=== PATIENT | male | born 1935 | race Caucasian/White ===

== ENCOUNTER 2016-05-11 13:00 | Emergency (ER) | payer MEDICARE ==
--- NOTE | ~2016-05-11 | CR151 ---
[facility] A Service of [facility] & [facility] RADIOLOGY TEXT RESULTS PATIENT: JUSTUS COTE LOCATION: [facility] : 35 UNIT #: [id number] AGE: [address]: Christen Loyola MD SEX: M ORDER DR: [id number] [facility] [address] [place], [place] [address] [id number] E MR#: [id number] Acc #: [id number] NAME: JUSTUS COTE : 1935 SEX: M STUDY DATE/TIME: 05/11/2016 12:44 UNIT: [facility] ROOM: STUDY DESCRIPTION: CR Hip Min 2 Views Rt Attending Physician: Christen Loyola M.D. Ordering Physician: Christen Loyola M.D. Primary Care Physician: Benjamín Cox M.D. MEDICAL IMAGING REPORT This report is preliminary unless electronic signature is present EXAM Right hip series 05/11/2016 HISTORY Pain. Right hip pain. Chronic. Worse for 2 weeks. No new injury. AP radiograph of the pelvis presented with frog-leg view of the right hip. COMPARISON STUDIES Comparison 05/15/2009 FINDINGS Status post bilateral hip arthroplasty. Orthopedic hardware appears normally located and aligned bilaterally. The [place] bony structures show no traumatic fracture or malalignment. Moderate degenerative changes suggested lower lumbar spine. Sacroiliac joints and sacral arcuate lines appear intact. Chronic soft tissue calcifications in the bilateral hip periarticular soft tissues. No acute-appearing abnormality. The visualized bowel gas pattern is normal. Dictated by... Oliver Guerra M.D. THIS IS AN ELECTRONICALLY VERIFIED REPORT Olievr Guerra M.D. at 05/12/2016 4:50 PM Nicole TD: 05/11/2016 15:01 JOB #: [id number] MEDICAL IMAGING REPORT Page 1 of 1 COPY
[~2016-05-11 13:00] MED LIST: ACTOS15 MG PO; ALLOPURINOL300 MG PO; AMLODIPINE BESYL5 MG PO; ASPIR-TRIN325 MG; ASPIRIN ENTERI325 M1 DOB; ATENOLOL25 MG PO; COLACE PO; COREG3.125 MG PO; ECOTRIN325 MG PO; FLOMAX0.4 M1 PO; GABAPENTIN300 M1 PO; GABAPENTIN600 MG PO; HYDROCHLOROTHIA25 MG PO; HYDROCODON-ACE1 EAC1 PO; INDOMETHACIN50 MG PO; LEVAQUIN750 MG PO; LEVITRA10 MG PO; LOPERAMIDE HCL2 M1 PO; LORTAB 7.5-5001 TAB PO; NAPROXEN500 M1 PO; NEURONTIN300 MG PO; NOVOLIN 70/30 V10 M1 SQ; PANTOPRAZOLE SO40 MG PO; PRINIVIL40 MG PO; REQUIP0.5 MG PO; ROPINIROLE HCL0.5 MG PO; SYNTHROID PO; SYNTHROID125 PO; TERAZOSIN HCL10 MG PO; VICODIN; ZOCOR20 MG PO; ZYLOPRIM100 MG PO
[2016-05-11 14:05] LABS: BASOPHIL% 0.6 % (0-2.5); EOSINOPHIL# 0.1 X10e3 (0-0.7); EOSINOPHIL% 1.2 % (0.0-7.0); HEMATOCRIT 45.4 % (38.0-50.0); HEMOGLOBIN 15.1 gm/dL (13.0-16.0); LYMPHOCYTE# 0.9 X10e3 (1.0-3.5); LYMPHOCYTE% 12.5 % (17.0-45.0); MEAN CELL VOLUME 96.6 FL (83-96); MEAN CORPUSCULAR HEMOGLOBIN 32.1 PG (28-34); MEAN CORPUSCULAR HGB CONC 33.3 g/dL (30-36); MEAN PLATELET VOLUME 9.5 FL (6.5-11.5); MONOCYTE# 0.6 X10e3 (0-1.0); NEUTROPHIL# 5.9 X10e3 (1.5-7.1); NEUTROPHIL% 77.7 % (40-75); PLATELET COUNT 126 X10e3 (140-420); RED BLOOD COUNT 4.71 X10e (3.90-5.60); RED CELL DISTRIBUTION WIDTH 14.6 % (11.0-15.5); WHITE BLOOD COUNT 7.5 X10e3 (4.0-10.5)
[2016-05-11 14:11] LABS: DIFF IND NO
[2016-05-11 14:23] LABS: BUN/CREATININE RATIO 12.5; CALCIUM SERUM 9.6 mg/dL (8.4-10.2); CREATININE SERUM 1.2 mg/dL (0.6-1.4); GLOM FILT RATE Estimated 56.4 mL/min (>60); POTASSIUM 3.9 mmol/L (3.5-5.1)
== END 2016-05-11 16:20 | disposition home or self-care (01) ==
LOC: CED 13:00
PROVIDERS: Emergency Medicine
DX: M25.552 Pain in left hip (principal); I10 Essential (primary) hypertension; E11.9 Type 2 diabetes mellitus without complications
CPT/HCPCS: 73502; 80048; 85025; 85652; 86140; 96374; 99283; J2405